=== PATIENT | female | born 1955 | race Caucasian/White ===

== ENCOUNTER 2018-03-16 13:22 | Emergency (ER) | payer MEDICARE, MEDICAID ==
[~2018-03-16 13:22] MED LIST: ATEN1TAB73 PO; BUDE100T PO; OMEP20TA PO; REST15CA PO; SERT-132 PO; SUMA50TA2 PO
[2018-03-16 13:26] VITALS: BP 136/72; PULSE 63; RESP 18; TEMP 98; O2SAT 98
[2018-03-16] MEDS ORDERED: ATEN25TA PO (13:41)
[2018-03-16] MEDS ORDERED: OMEP20TA93 PO (13:41)
[2018-03-16] MEDS ORDERED: BUPR100T4 PO (13:41)
[2018-03-16] MEDS ORDERED: SUMA100T2 PO (13:41)
[2018-03-16] MEDS ORDERED: SODIUM CHLOR 0.9% 1000 ML INJ 1,000 ML IV SCH (14:00)
[2018-03-16 14:20] LABS: AUTOMATED NEUTROPHIL # 4.2 TH/MM3 (1.8-7.7); BASOPHIL # 0.1 TH/MM3 (0-0.2); BASOPHIL % 1.2 % (0.0-2.0); EOSINOPHIL # 0.2 TH/MM3 (0-0.4); EOSINOPHIL % 2.9 % (0.0-4.0); HEMATOCRIT 43.6 % (35.0-46.0); HEMOGLOBIN 14.5 GM/DL (11.6-15.3); LYMPH % 27.4 % (9.0-44.0); MEAN CELL VOLUME 86.7 FL (80.0-100.0); MEAN CORPUSCULAR HEMOGLOBIN 28.7 PG (27.0-34.0); MEAN CORPUSCULAR HGB CONC 33.2 % (32.0-36.0); MEAN PLATELET VOLUME 7.5 FL (7.0-11.0); MONO % 9.7 % (0.0-8.0); MONOCYTE # 0.7 TH/MM3 (0-0.9); NEUT % 58.8 % (16.0-70.0); PLATELET COUNT 282 TH/MM3 (150-450); RED BLOOD COUNT 5.03 MIL/MM3 (4.00-5.30); RED CELL DISTRIBUTION WIDTH 14.5 % (11.6-17.2); WHITE BLOOD COUNT 7.2 TH/MM3 (4.0-11.0)
--- NOTE | 2018-03-16 14:27 | PD ---
HPI Chief Complaint: Neuro Symptoms/ Deficits Time Seen by Provider: 13:32 Travel History International Travel<30 days: No Contact w/Intl Traveler<30days: No Traveled to known affect area: No History of Present Illness HPI 62-year-old female complains of headache. 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 Patient states that she has history of intermittent headaches since then. Patient states that headache is worse for the past 4 days. Patient states the headache has been constant on the right side of the head also the frontal head. Patient denies any visual change. Patient denied any neck stiffness. Patient denies any recent head injury. Patient was seen by Dr. Dunaway, neurologist. Outpatient CT scan of the brain done about a week and a half ago at [facility] suggests of cerebral aneurysm. Patient was referred to ED for evaluation, admission and cerebral angiogram and lumbar puncture. On a scale of 1-10 the headache is a 7. PFSH Past Medical History Arthritis: Yes Blood Disorders: No Cancer: No Cardiovascular Problems: No High Cholesterol: Yes Cerebrovascular Accident: Yes (1999, ANYURISM X2) Diabetes: No Endocrine: No Gastrointestinal Disorders: Yes (REFLUX) GERD: Yes Glaucoma: No Genitourinary: No Headaches: Yes Hepatitis: No Hiatal Hernia: No Hypertension: Yes Immune Disorder: No Medical other: Yes (ANEMIA) Musculoskeletal: Yes (GENERALIZED ARTHRITIS) Neurologic: Yes (NUMBNESS, TINGLING,WEAKNESS RT ARM, MIGRAINES, BRAIN ANUERYSMS IN PAST) Psychiatric: No Reproductive: No Respiratory: No Thyroid Disease: No Ulcer: Yes ?: Not Past Surgical History Abdominal Surgery: Yes (GASTRIC SX, PARTIAL INTESTINES REMOVED, STOMACH SPHINTER REPAIRED) AICD: No Body Medical Devices: ANUERYSM CLIPS Cardiac Surgery: No Ear Surgery: No Endocrine Surgery: No Eye Surgery: Yes (RIGHT EYELID SX) Genitourinary Surgery: No Gynecologic Surgery: Yes (LT OOPHECTOMY, REMOVAL SCAR TISSUE) Joint Replacement: No Neurologic Surgery: Yes (2 CEREBRAL ANEURYSMS, 4 BRAIN SURGERIES, ANUERYSM CLIPPING AND BONE GRAFT) Oral Surgery: No Pacemaker: No Thoracic Surgery: No Other Surgery: Yes Social History Alcohol Use: No Tobacco Use: No Substance Use: No Allergies-Medications (Allergen,Severity, Reaction): Coded Allergies: No Known Allergies (Verified Allergy, Unknown, 03/16/18) Reported Meds & Prescriptions Reported Meds & Active Scripts Active Reported Sumatriptan (Sumatriptan Succinate) 100 Mg Tab 100 Mg PO ONCE PRN If a satisfactory response has not been obtained at 2 hours, a second dose may be administered Bupropion HCl 100 Mg Tab 100 Mg PO DAILY Atenolol 25 Mg Tab 12.5 Mg PO DAILY Omeprazole 20 Mg Tab 20 Mg PO DAILY Review of Systems General / Constitutional: No: Fever Eyes: No: Visual changes HENT: Positive: Headaches Cardiovascular: No: Chest Pain or Discomfort Respiratory: No: Shortness of Breath Gastrointestinal: No: Abdominal Pain Genitourinary: No: Dysuria Musculoskeletal: No: Pain Skin: No Rash Neurologic: No: Weakness Psychiatric: No: Depression Endocrine: No: Polydipsia Hematologic/Lymphatic: No: Easy Bruising Physical Exam Narrative GENERAL: Well-nourished, well-developed patient. SKIN: Focused skin assessment warm/dry. HEAD: Normocephalic. EYES: No scleral icterus. No injection or drainage. NECK: Supple, trachea midline. No JVD or lymphadenopathy. CARDIOVASCULAR: Regular rate and rhythm without murmurs, gallops, or rubs. RESPIRATORY: Breath sounds equal bilaterally. No accessory muscle use. GASTROINTESTINAL: Abdomen soft, non-tender, nondistended. MUSCULOSKELETAL: No cyanosis, or edema. BACK: Nontender without obvious deformity. No CVA tenderness. Neurologic exam: Patient is awake and alert oriented 3. No obvious focal neurological deficit. Data Data Last Documented VS Vital Signs Date Time Temp Pulse Resp B/P (MAP) Pulse Ox O2 Delivery O2 Flow Rate FiO2 03/16/18 13:26 98.0 63 18 136/72 (93) 98 Orders Orders Electrocardiogram (03/16/18 13:56) Complete Blood Count With Diff (03/16/18 13:56) Comprehensive Metabolic Panel (03/16/18 13:56) Prothrombin Time / Inr (Pt) (03/16/18 13:56) Act Partial Throm Time (Ptt) (03/16/18 13:56) Urinalysis - C+S If Indicated (03/16/18 13:56) Chest, Single Ap (03/16/18 13:56) Iv Access Insert/Monitor (03/16/18 13:56) Ecg Monitoring (03/16/18 13:56) Oximetry (03/16/18 13:56) Sodium Chlor 0.9% 1000 Ml Inj (Ns 1000 M (03/16/18 14:00) Angiogram, Cerebral W Arch (03/16/18 ) Lumbar Puncture (03/16/18 ) Vital Signs (Adult) .On admission (03/16/18 14:04) Notify Radiology (03/16/18 14:04) Consult Neurology (03/16/18 ) Consult Neurosurgery (03/16/18 ) (Hub Use Only)Inp Phy Cons/Ref (03/16/18 ) Atenolol (Tenormin) (03/17/18 09:00) Bupropion (Wellbutrin) (03/17/18 09:00) Admit To Inpatient (03/16/18 ) Vital Signs (Adult) Q4H (03/16/18 15:01) Neuro Checks Q4H (03/16/18 15:01) Activity Bed Rest (03/16/18 15:01) Market Research Coordinator / Telemetry .CONTINUOUS (03/16/18 15:01) Intake + Output NICKO.QSHIFT (03/16/18 15:01) Diet Heart Healthy (03/16/18 Dinner) Sodium Chloride 0.9% Flush (Ns Flush) (03/16/18 15:15) Sodium Chloride 0.9% Flush (Ns Flush) (03/16/18 21:00) Acetaminophen (Tylenol) (03/16/18 15:15) Ondansetron Inj (Zofran Inj) (03/16/18 15:15) Basic Metabolic Panel (Bmp) (03/17/18 06:00) Complete Blood Count With Diff (03/17/18 06:00) Scd Bilateral/Knee High NICKO.BID (03/16/18 15:01) Naloxone Inj (Narcan Inj) (03/16/18 15:15) Magnesium Hydroxide Liq (Milk Of Magnesi (03/16/18 15:15) Sennosides (Senokot) (03/16/18 15:15) Bisacodyl Supp (Dulcolax Supp) (03/16/18 15:15) Lactulose Liq (Lactulose Liq) (03/16/18 15:15) Inpatient Certification (03/16/18 ) Admit Order (Ed Use Only) (03/16/18 15:04) Labs Laboratory Tests Test 03/16/18 14:00 White Blood Count 7.2 TH/MM3 Red Blood Count 5.03 MIL/MM3 Hemoglobin 14.5 GM/DL Hematocrit 43.6 % Mean Corpuscular Volume 86.7 FL Mean Corpuscular Hemoglobin 28.7 PG Mean Corpuscular Hemoglobin Concent 33.2 % Red Cell Distribution Width 14.5 % Platelet Count 282 TH/MM3 Mean Platelet Volume 7.5 FL Neutrophils (%) (Auto) 58.8 % Lymphocytes (%) (Auto) 27.4 % Monocytes (%) (Auto) 9.7 % Eosinophils (%) (Auto) 2.9 % Basophils (%) (Auto) 1.2 % Neutrophils # (Auto) 4.2 TH/MM3 Lymphocytes # (Auto) 2.0 TH/MM3 Monocytes # (Auto) 0.7 TH/MM3 Eosinophils # (Auto) 0.2 TH/MM3 Basophils # (Auto) 0.1 TH/MM3 CBC Comment DIFF FINAL Differential Comment Prothrombin Time 10.7 SEC Prothromb Time International Ratio 1.1 RATIO Activated Partial Thromboplast Time 24.5 SEC Blood Urea Nitrogen 14 MG/DL Creatinine 0.87 MG/DL Random Glucose 95 MG/DL Total Protein 7.6 GM/DL Albumin 4.0 GM/DL Calcium Level 9.9 MG/DL Alkaline Phosphatase 60 U/L Aspartate Amino Transf (AST/SGOT) 18 U/L Alanine Aminotransferase (ALT/SGPT) 17 U/L Total Bilirubin 0.3 MG/DL Sodium Level 139 MEQ/L Potassium Level 4.4 MEQ/L Chloride Level 104 MEQ/L Carbon Dioxide Level 27.2 MEQ/L Anion Gap 8 MEQ/L Estimat Glomerular Filtration Rate 66 ML/MIN MDM Medical Decision Making Medical Screen Exam Complete: Yes Emergency Medical Condition: Yes Interpretation(s) Last Impressions Chest X-Ray 03/16/18 0656 Signed Impressions: Service Date/Time: Friday, March 16, 2018 14:09 - CONCLUSION: No acute disease. Se Gamboa MD FACR Differential Diagnosis Differential diagnosis including cerebral aneurysm, migraine headache, tension headache, cluster headache. Narrative Course 62-year-old female with headache. History of ruptured cerebral aneurysm status post surgery in the past. Recent CT of the brain suggested cerebral aneurysm. Patient was seen by Dr. Gume, neurologist,. Patient was advised to be admitted for lumbar spine cerebral angiogram, lumbar puncture and consult neurologist and neurosurgeon. [address] Dunaway, neurologist call. Dr. Dunaway was advised by radiologist that no aneurysm on the cerebral angiogram. Dr. Dunaway advised me to discharge the patient and follow up with him in the office. Diagnosis Primary Impression: Cephalgia Qualified Codes: R51 - Headache Patient Instructions: General Instructions Additional Instructions: Continue all medications. Follow-up with neurologist Dr. Dunaway. Med/Other Pt SpecificInfo: No Change to Meds Disposition: 01 DISCHARGE HOME Condition: Stable Sotero Mauricio MD March 16, 2018 14:27
[2018-03-16 14:29] LABS: INTERNATIONAL NORMALIZED RATIO 1.1 RATIO; PROTHROMBIN TIME - PATIENT 10.7 SEC (9.8-11.6)
[2018-03-16 14:42] LABS: AST (GOT) 18 U/L (15-37); BICARBONATE 27.2 MEQ/L (21.0-32.0); BLOOD UREA NITROGEN 14 MG/DL (7-18); CALCIUM 9.9 MG/DL (8.5-10.1); CHLORIDE 104 MEQ/L (98-107); CREATININE 0.87 MG/DL (0.50-1.00); GLOMERULAR FILTRATION RATE 66 ML/MIN (>89); GLUCOSE,RANDOM 95 MG/DL (74-106); SODIUM (NA) 139 MEQ/L (136-145)
[2018-03-16 14:43] LABS: ALT (GPT) 17 U/L (10-53)
--- NOTE | 2018-03-16 14:44 | RADRPT ---
EXAM DATE/TIME: 03/16/2018 14:09 [facility] COMPARISON: No previous studies available for comparison. INDICATIONS : Shortness of breath. MEDICAL HISTORY : Neuro. SURGICAL HISTORY : None. ENCOUNTER: Initial ACUITY: 1 day PAIN SCORE: 0/10 LOCATION: Bilateral chest FINDINGS: A single view of the chest demonstrates the lungs to be symmetrically aerated without evidence of mas s, infiltrate or effusion. The cardiomediastinal contours are unremarkable. Osseous structures are intact. CONCLUSION: No acute disease. Se Gamboa MD FACR on March 16, 2018 at 14:41 Board Certified Radiologist. This report was verified electronically.
[2018-03-16 14:45] LABS: ALKALINE PHOSPHATASE 60 U/L (45-117); TOTAL BILIRUBIN ADULT 0.3 MG/DL (0.2-1.0); TOTAL PROTEIN 7.6 GM/DL (6.4-8.2)
[2018-03-16] MEDS ORDERED: LACTULOSE SYRUP 20 GM/30 ML CUP PO PRN (15:15)
[2018-03-16] MEDS ORDERED: SODIUM CHLORIDE 0.9% FLUSH 10 ML FLUSH IV FLUSH PRN (15:15)
[2018-03-16] MEDS ORDERED: SENNOSIDES 8.6 MG TAB PO PRN (15:15)
[2018-03-16] MEDS ORDERED: PILL SPLITTER OTHER PRN (15:15)
[2018-03-16] MEDS ORDERED: BISACODYL 10 MG SUPP RECTAL PRN (15:15)
[2018-03-16] MEDS ORDERED: MAGNESIUM HYDROXIDE SUSP 30 ML CUP PO PRN (15:15)
[2018-03-16] MEDS ORDERED: NALOXONE HCL 0.4 MG/ML AMP IV PUSH PRN (15:15)
[2018-03-16] MEDS ORDERED: ONDANSETRON HCL 4 MG/2 ML VIAL IVP PRN (15:15)
[2018-03-16] MEDS ORDERED: ACETAMINOPHEN 325 MG TAB PO PRN (15:15)
[2018-03-16] MEDS ORDERED: IOHEXOL 350 MG/ML 10 ML VIAL (for RAD DIAG) IVCONTRAST ONE (16:13)
[2018-03-16 16:17] VITALS: O2SAT 99
[2018-03-16 16:50] VITALS: BP 130/86; PULSE 64; RESP 17; O2SAT 98
--- NOTE | 2018-03-16 16:58 | RADRPT ---
EXAM DATE/TIME: 03/16/2018 15:52 [facility] COMPARISON: No previous studies available for comparison. INDICATIONS : Aneurysm. IV CONTRAST: 57 cc Omnipaque 350 (iohexol) IV RADIATION DOSE: 41.37 CTDIvol (mGy) MEDICAL HISTORY : Hypertension. None. Anemia SURGICAL HISTORY : Anuerysm clipping ENCOUNTER: Initial ACUITY: 1 day PAIN SCALE: 0/10 LOCATION: cranial TECHNIQUE: Volumetric scanning was performed using a multi-row detector CT scanner. The data was post processed with a variety of visualization algorithms including full volume maximum intensity projection, multi -planar sliding thin slab reformation, curved planar reformation, and surface rendering techniques. Using automated exposure control and adjustment of the mA and/or kV according to patient size, radiat ion dose was kept as low as reasonably achievable to obtain optimal diagnostic quality images. DICO M format image data is available electronically for review and comparison. FINDINGS: There is evidence of previous aneurysm clipping at the anterior right skull base, likely a P-comm ane urysm. There is no evidence of residual or recurrent aneurysm. The adjacent supraclinoid carotid is m inimally asymmetric in size compared to the contralateral left side which accounts for the convention al CT appearance however no suspicious finding is identified. No aneurysm or vascular malformation at this location or elsewhere in the brain. There is no evidence of major vessel occlusion or stenosis. CONCLUSION: Satisfactory appearance post previous aneurysm clipping. Scar Martin MD on March 16, 2018 at 16:19 Board Certified Radiologist. This report was verified electronically.
[2018-03-16] MEDS ORDERED: SODIUM CHLORIDE 0.9% FLUSH 10 ML FLUSH IV FLUSH SCH (21:00)
[2018-03-17] MEDS ORDERED: buPROPion HCL 100 MG TAB PO SCH (09:00)
[2018-03-17] MEDS ORDERED: ATENOLOL 25 MG TAB PO SCH (09:00)
--- NOTE | 2018-03-17 19:48 | EKG ---
Date Performed: 03/16/2018 Time Performed: 16:30:11 PTAGE: 62 years EKG: SINUS BRADYCARDIA BORDERLINE ECG Since the PREVIOUS TRACING , no significant change noted PREVIOUS TRACIN08/21/2013 13.06 DOCTOR: Maxim Neville Interpretating Date/Time 03/17/2018 19:48:07
== END 2018-03-16 17:24 | disposition home or self-care (01) ==
LOC: NEPE 13:22 → NEDA 15:06 → UNDOADMIN 15:06
DX: R51 Headache (principal); I10 Essential (primary) hypertension; K21.9 Gastro-esophageal reflux disease without esophagitis; Z79.899 Other long term (current) drug therapy
CPT/HCPCS: 70496; 71045; 80053; 85025; 85610; 85730; 93005; 99285; J7030; Q9967